=== PATIENT | female | born 1980 | race American Indian/Alaskan Native ===

== ENCOUNTER 2017-07-19 16:31 | Emergency (ER) | payer OTHER ==
[2017-07-19 16:57] VITALS: BP 142/93
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
== END 2017-07-19 19:36 | disposition left against medical advice (07) ==
LOC: ED 16:31
DX: Z53.21 Procedure and treatment not carried out due to patient leaving prior to being seen by health care provider (principal)

== ENCOUNTER 2018-09-23 12:57 | Emergency (ER) | payer SELFPAY ==
--- NOTE | 2018-09-23 13:08 | Emergency Department Report ---
Chief Complaint: Headache Stated Complaint: NOSE BLEED AND HEADACHE Time Seen by Provider: 09/23/18 13:04 - HPI History of Present Illness: This is a 38 y.o. female that presents with a headache, nosebleed and tremors x 2 days. LMP 09/15/18. She reports headache feel like pressure and then nosebleed occurs. PMH HTN, DM, anemia - Exam Vital Signs: Vital Signs 09/23/18 13:00 Temperature 97.9 F Pulse Rate 108 H Respiratory 16 Rate Blood Pressure 160/104 [Right] O2 Sat by Pulse 97 Oximetry MSE screening note: Focused history and physical exam performed. Due to findings the following was ordered: Labs ED Disposition for MSE Condition: Stable
[2018-09-23 13:20] LABS: Hematocrit 30.5 % (30.3-42.9); Hemoglobin 9.6 gm/dl (10.1-14.3); Mean Corpuscular HGB Conc 32 % (30-34); Platelet Count 373 K/mm3 (140-440); Red Blood Count 5.27 M/mm3 (3.65-5.03)
[2018-09-23 13:25] LABS: Mean Corpuscular Hemoglobin 18 pg (28-32); Mean Corpuscular Volume 58 fl (79-97); Red Cell Distribution Width 20.4 % (13.2-15.2)
[2018-09-23] MEDS ORDERED: FIORICET PO ONE (13:28)
[2018-09-23] MEDS ORDERED: REGLAN PO ONE (13:28)
[2018-09-23] MEDS ORDERED: BENADRYL PO ONE (13:28)
[2018-09-23] MEDS ORDERED: DELTASONE PO ONE (13:29)
[2018-09-23 13:36] LABS: BUN/Creatinine Ratio 20; Blood Urea Nitrogen 10 mg/dL (7-17); Calcium 9.5 mg/dL (8.4-10.2); Hemolysis Index 0
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
[2018-09-23 14:01] LABS: Basophils % (Manual) 0 % (0.0-1.8); Total Cells Counted 100
[2018-09-23 14:02] LABS: Anisocytosis 1+
[2018-09-23 14:03] LABS: Hypochromasia 1+; Ovalocytes 1+; Platelet Estimate Consistent w Auto; Poikilocytosis 1+; Target Cells Rare
[2018-09-23 14:42] VITALS: BP 146/96
== END 2018-09-23 14:41 | disposition home or self-care (01) ==
LOC: ED 12:57
DX: I10 Essential (primary) hypertension (principal); Z91.018 Allergy to other foods; Z98.51 Tubal ligation status; Z87.891 Personal history of nicotine dependence
CPT/HCPCS: 36415; 80048; 85007; 85025; 99283; J7512